=== PATIENT | male | born 1990 | race Caucasian/White ===

== ENCOUNTER 2022-10-05 14:45 | Emergency (ER) | payer OTHER, SELFPAY ==
[2022-10-05 14:59] VITALS: BP 129/86; PULSE 84; RESP 16; O2SAT 99; BMI 20.1
--- NOTE | 2022-10-05 15:13 | ED_ITS ---
HPI - Skin/Abscess/Foreign Bdy General Chief complaint: Skin/Abscess/Foreign Body Stated complaint: POSSIBLE CHEMICAL BURN ON REAR Time Seen by Provider: 10/05/22 15:01 Source: patient Mode of arrival: walk-in Limitations: no limitations History of Present Illness HPI narrative: 32-year-old male presents for rash. It's well-defined and on his right buttock. There is no pain but it's pruritic. No drainage. It is not elsewhere on his body. It is continuous. Related Data Previous Rx's Medication Instructions Recorded clotrimazole-betamethasone 1 1 applic topical BID 2 weeks #45 10/05/22 %-0.05 % topical cream grams fluconazole 100 mg tablet 100 mg PO DAILY #7 tabs 10/05/22 (Diflucan) Allergies Allergy/AdvReac Type Severity Reaction Status Date / Time Sulfa (Sulfonamide Allergy Severe Hives Verified 10/05/22 14:57 Antibiotics) mushrooms Allergy Severe Hives Uncoded 10/05/22 14:57 Review of Systems ROS Narrative A ten point review of systems is negative except as noted above. [facility] Medical History (Updated 10/05/22 @ 15:11 by Rafal Arauz MD) Social History Smoking status: Heavy tobacco smoker Exam Narrative Exam Narrative: Nurses note and vital signs reviewed and patient is not hypoxic. General: The patient appears well and in no apparent distress. Patient is resting comfortably on cart. Skin: Warm, dry, no pallor noted. There is it very well defined oval type rash on his right buttock involving approximately one quarter of the buttock. There is some central clearing. There is no raised area or drainage. Head: Normocephalic, atraumatic Eye: Normal conjunctiva, no drainage Ears, Nose, Mouth, and Throat: oral mucosa is moist. Nares patent. Cardiovascular: Regular Rate and Rhythm Respiratory: Patient is in no distress, no accessory muscle use, lungs are clear to auscultation, no wheezing, rales or rhonchi Back: non-tender GI: nontender Musculoskeletal: The patient has no evidence of calf tenderness, no pitting edema, symmetrical pulses noted bilaterally Neurological: A&O, normal speech Psychiatric: Cooperative Constitutional Vital Signs, click to edit/add: Last Vital Signs Pulse 84 10/05/22 14:59 Resp 16 10/05/22 14:59 BP 129/86 H 10/05/22 14:59 Pulse Ox 99 10/05/22 14:59 O2 Del Method Room Air 10/05/22 14:59 Course Vital Signs Vital signs: Vital Signs Pulse Rate 84 10/05/22 14:59 Respiratory Rate 16 10/05/22 14:59 Blood Pressure 129/86 H 10/05/22 14:59 Pulse Oximetry 99 10/05/22 14:59 Oxygen Delivery Method Room Air 10/05/22 14:59 Pulse Rate 84 10/05/22 14:59 Respiratory Rate 16 10/05/22 14:59 Blood Pressure 129/86 H 10/05/22 14:59 Pulse Oximetry 99 10/05/22 14:59 Oxygen Delivery Method Room Air 10/05/22 14:59 MDM - Skin/Abscess/Foreign Bdy MDM Narrative Medical decision making narrative: my clinical impression is that the patient has tinea corporis. He is prescribed Diflucan and Lotrisone. Treatment diagnosis and follow-up were discussed with th e patient. Differential Diagnosis Differential diagnosis: Likely abscess of skin or subcutaneous tissue, viral exanthem, dermatophytosis, urticaria, cellulitis and contact dermatitis Discharge Plan Discharge Chief Complaint: Skin/Abscess/Foreign Body Clinical Impression: Fungal dermatitis Patient Disposition: Home, Self-Care Time of Disposition Decision: 15:09 Condition: Good Mode of Transportation: Private Vehicle Prescriptions / Home Meds: New fluconazole [Diflucan] 100 mg tablet 100 mg PO DAILY Qty: 7 0RF clotrimazole-betamethasone 1-0.05 % cream 1 applic topical BID 14 Days Qty: 45 0RF Instructions: Tinea Corporis (ED) Stand Alone Forms: Portal Instructions Referrals: Natalee Thompson MD [Primary Care Provider] - 1 week
== END 2022-10-05 15:21 | disposition home or self-care (01) ==
PROVIDERS: Emergency Provider Emergency Medicine; PCP Specialist
DX: B35.4 Tinea corporis (principal); F17.210 Nicotine dependence, cigarettes, uncomplicated
CPT/HCPCS: 99283

== ENCOUNTER 2024-06-12 09:20 | Emergency (ER) | payer OTHER, SELFPAY ==
[2024-06-12 09:25] VITALS: BP 157/85; PULSE 104; TEMP 36.6; O2SAT 97; BMI 21.8
--- NOTE | 2024-06-12 10:30 | ED_ITS ---
HPI - Skin/Abscess/Foreign Bdy General Chief complaint: Skin/Abscess/Foreign Body Stated complaint: RASH ON BUTTOCK Time Seen by Provider: 06/12/24 09:31 Source: patient Mode of arrival: walk-in History of Present Illness HPI narrative: The patient presented to the ER with 2 rashes Diffuse rash in the posterior aspect of the buttock area has been there for a year initially he was treated with the antifungal cream that got better but came up again during the year and he did not address it The patient have another rash on the lateral aspect of his left thigh that showed up 2 days ago and is very itchy He denies any other complaints he denies any exposure to any new material 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 Related Data Previous Rx's ?Medication ?Instructions ?Recorded betamethasone dipropionate 0.05 % 1 applic topical BID rash #15 grams 06/12/24 topical cream clotrimazole 1 % topical cream 1 applic topical BID 4 weeks #45 06/12/24 grams Allergies Allergy/AdvReac Type Severity Reaction Status Date / Time Sulfa (Sulfonamide Allergy Severe Hives Verified 10/05/22 14:57 Antibiotics) mushrooms Allergy Severe Hives Uncoded 10/05/22 14:57 Review of Systems ROS Status of ROS 10 or more systems reviewed and unremark able except as noted in history and below [facility] Medical History (Updated 06/12/24 @ 09:40 by Katherine Garcia MD) History of depression ?Z86.59 - Personal history of other mental and behavioral disorders (ICD-10) Social History Smoking status: Heavy tobacco smoker Little interest or pleasure in doing things: not at all Feeling down, depressed, or hopeless: not at all Exam Narrative Exam Narrative: Nurses notes and vital signs reviewed and patient is not hypoxic. General: Well-appearing and in no apparent distress. Skin: On the posterior aspect of the sacral area the patient had 2 lesions that are measuring almost 3 cm oval and dry, macular and this rash could be tinea corporis On the lateral aspect of the thigh the patient have a 3 x 5 cm oval in shape rash that is continue to 2 small lesions that are papular and looks like it is contact dermatitis there is no vesicles there is no fluid there is no signs of infection Constitutional Vital Signs, click to edit/add: Last Vital Signs Temp 98 F 06/12/24 09:25 Pulse 104 H 06/12/24 09:25 Resp 20 06/12/24 09:25 BP 157/85 H 06/12/24 09:25 Pulse Ox 97 06/12/24 09:25 O2 Del Method Room Air 06/12/24 09:25 Course Vital Signs Vital signs: Vital Signs Temperature 98 F 06/12/24 09:25 Pulse Rate 104 H 06/12/24 09:25 Respiratory Rate 20 06/12/24 09:25 Blood Pressure 157/85 H 06/12/24 09:25 Pulse Oximetry 97 06/12/24 09:25 Oxygen Delivery Method Room Air 06/12/24 09:25 Temperature 98 F 06/12/24 09:25 Pulse Rate 104 H 06/12/24 09:25 Respiratory Rate 20 06/12/24 09:25 Blood Pressure 157/85 H 06/12/24 09:25 Pulse Oximetry 97 06/12/24 09:25 Oxygen Delivery Method Room Air 06/12/24 09:25 MDM - Skin/Abscess/Foreign Bdy MDM Narrative Medical decision making narrative: The patient's first rash that has been there for years mostly tinea corporis and it would be treated with clotrimazole twice a day for at least 4 weeks The patient also had a rash on the lateral aspect of the thigh and it will be treated with the local mid potency cream of steroid for contact dermatitis, Patient instructed to come back to the ER in case of any worsening of his symptoms The patient is to follow up with primary care physician in next 2-3 days or to return to the emergency department should any of the signs or symptoms worsen or new symptoms develop. The patient agrees with the following Diagnosis and Treatment plan and the patient will be discharged home. Discharge Plan Discharge Chief Complaint: Skin/Abscess/Foreign Body Clinical Impression: Contact dermatitis, Tinea corporis Patient Disposition: Home, Self-Care Time of Disposition Decision: 09:40 Condition: Good Prescriptions / Home Meds: New clotrimazole 1 % cream 1 applic topical BID 28 Days Qty: 45 0RF Rx Instructions: please apply to the posterior buttock rash betamethasone dipropionate 0.05 % cream 1 applic topical BID Qty: 15 0RF Rx Instructions: please apply for the left thigh rash for 1 week Print Language: [place] Instructions: Contact Dermatitis (DC), Tinea Corporis (ED) Referrals: Physician,Non-Staff, MD [Primary Care Provider] - 1 week Discharge Date/Time: 06/12/24 09:50
== END 2024-06-12 09:50 | disposition home or self-care (01) ==
PROVIDERS: Emergency Provider Emergency Medicine
DX: L25.9 Unspecified contact dermatitis, unspecified cause (principal); B35.4 Tinea corporis; F17.200 Nicotine dependence, unspecified, uncomplicated
CPT/HCPCS: 99283

== ENCOUNTER 2025-01-13 09:32 | Emergency (ER) | payer OTHER, SELFPAY ==
[2025-01-13] VITALS (9 sets, daily range): BP systolic 108–146; BP diastolic 70–90; PULSE 77–88; TEMP 36.9; O2SAT 98–100; BMI 21.3
--- OUTSIDE RECORDS SUMMARY | 2025-01-13 09:49 | XMS_ITS | Clinical Summary ---
Author Organization [facility] Address [address] [place] [address], [address] [place] [address] Care Team Providers Care Chairman And Ceo Name Role Phone Natalee Thompson MD Primary Care Provider Unavailab le Allergies Active Allergy Reactions Criticality Noted Date Comments Sulfa Antibiotics Hives 05/19/2016 Medications FLUoxetine (PROZAC) 20 MG capsule Take 40 mg by mouth every morning Active atenolol (TENORMIN) 25 MG tablet Take 25 mg by mouth every morning Active ibuprofen (ADVIL;MOTRIN) 600 MG tablet Take 1 tablet by mouth every 8 hours as needed for Pain 20 tablet 07/07/2016 Active Active Problems No known active problems Immunizations Immunization Administration Dates Next Due TDaP, ADACEL (age 10y-64y), BOOSTRIX (age 10y+), IM, 0.5mL 11/16/2016 Social History Tobacco Use Types Packs/Day Years Used Date Smoking Tobacco: Every Day Cigarettes Alcohol Use Standard Drinks/Week Comments No 0 (1 standard drink = 0.6 oz pur e alcohol) Sex and Gender Information Value Date Recorded Sex Assigned at Not on file Legal Sex Male 4:05 AM EDT Gender Identity Not on file Sexual Orientation Not on file Last Filed Vital Signs Vital Sign Reading Time Taken Comments Blood Pressure 120/70 11/16/2016 1:13 PM EDT Pulse 79 11/16/2016 1:13 PM EDT Temperature 36.7 C (98 F) 11/16/2016 1:13 PM EDT Respiratory Rate 18 07/07/2016 8:50 PM EDT Oxygen Saturation 98% 11/16/2016 1:13 PM EDT Inhaled Oxygen Concentration - - Weight 81.6 kg (180 lb) 11/16/2016 1:13 PM EDT Height 193 cm (6' 4 ) 11/16/2016 1:13 PM EDT Body Mass Index 21.91 11/16/2016 1:13 PM EDT Plan of Treatment Not on file Insurance [facility] [place] [facility] [place] Care Teams Chairman And Ceo Relationship Specialty Start Date End Date Natalee Thompson MD [address] [place] [address] PCP - General 05/19/16
--- OUTSIDE RECORDS SUMMARY | 2025-01-13 09:51 | XMS_ITS | CCD ---
Author Organization [facility] Care Team Providers Care Data Librarian Name Role Phone DANISH LOWERY Unavailable SHARMILA Bailon Unavailable Asha SAMPSON, DR JORGE Gonzalez Consulting Unavailable BEVERLEY, DR DANISH Stallings Primary Care Unavailable ADRIÁN, DR JORGE Gonzalez Admitting Unavailable ADRIÁN, DR JORGE Gonzalez Attending Unavailable ADRIÁN, DR JORGE Gonzalez Attending Unavailable ADRIÁN, DR JORGE Gonzalez Consulting Unavailable BEVERLEY, DR DANISH Stallings Primary Care Unavailable DR JORGE SAMPSON Admitting Unavailable AZAM FREIRE Admitting Unavailable GUERA VYAS Consulting Unavailable BEVERLEY, DR DANISH Stallings Primary Care Unavailable AZAM FREIRE Attending Unavailable Allergies Allergy Classification Reported Allergen(s) Allergy Type Date of Onset Reaction(s) Facility (1 source) Sulfonamides (Antibiotic) Drug allergy (disorder) 02-05-2015 [facility] Repository (1 source) Misc-Food; Translations: [Misc-Food] Food allergy (disorder) 02-05-2015 [facility] Repository Problems Active Problems Problem Classification Problem Date Documented Da te Episodic/Chronic Mood disorders (8 sources) Unspecified mood [affective] disorder; Translations: [Major depressive disorder, single episode, unspecified] Onset: 02-22-2021 Chronic Substance-related disorders (1 source) Nicotine dependence, cigarettes, uncomplicated; Translations: [NICOTINE DEPEND CIGARETTES UNCOMP] Onset: 01-22-2021 Chronic Substance-related disorders (2 sources) Cannabis use, unspecified, uncomplicated; Translations: [Cocaine use, unspecified, uncomplicated] Onset: 08-31-2021 Episodic Unclassified (1 source) CONTACT W/AND (SUSP) EXPOS COVID-19; Translations: [CONTACT W/AND (SUSP) EXPOS COVID-19] Onset: 08-31-2021 Past or Other Problems Problem Classification Problem Date Documented Da te Episodic/Chronic Disorders of teeth and jaw (4 sources) Other specified disorders of teeth and supporting structures; Translations: [Periapical abscess without sinus] Onset: 01-19-2021 Episodic Open wounds of extremities (1 source) Laceration without foreign body of left hand, initial encounter; Translations: [Laceration without foreign body of left hand, initial encounter] Onset: 11-16-2016 Episodic Results Test Name Value Interpretation Reference Range Facil ity ACETAMINOPHENon 08-30-2021 Acetaminophen [Mass/Vol] ug/mL Critically low 10.0-30.0 [facility] Comment on above: Performed By: #### E TH, CMP, SALYC, ACET #### [facility] [address] [place] [address] Dr. Ham Bai CBC AUTO DIFFon 08-30-2021 BASO # 0.1 103/ul Normal 0.0-0.1 [facility] Comment on above: Performed By: #### C BC #### [facility] [address] [place] [address] Dr. Ham Bai Basophils/100 WBC (Bld) 0.7 % Normal 0.2-2.0 [facility] Comment on above: Performed By: #### C BC #### [facility] [address] [place] [address] Dr. Ham Bai EO # 0.0 103/ul Normal 0.0-0.7 [facility] Comment on above: Performed By: #### C BC #### [facility] [address] [place] [address] Dr. Ham Bai Eosinophils/100 WBC (Bld) 0.4 % Critically low 0.9-7.0 [facility] Comment on above: Performed By: #### C BC #### [facility] [address] [place] [address] Dr. Ham Bai Erythrocyte distribution width (RBC) [Ratio] 13.8 % Normal 11.0-15.0 [facility] Comment on above: Performed By: #### C BC #### [facility] [address] [place] [address] Dr. Ham Bai Hematocrit (Bld) [Volume fraction] 46.4 % Normal 42.0-54.0 [facility] Comment on above: Performed By: #### C BC #### [facility] [address] [address] [address] Ham Bai Hemoglobin (Bld) [Mass/Vol] 15.7 g/dL Normal 14.0-18.0 [facility] Comment on above: Performed By: #### C BC #### [facility] [address] [address] [address] Ham Bai IG # 0.04 10e3/ul Critically high 0.00-0.03 [facility] Comment on above: Performed By: #### C BC #### [facility] [address] [place] [address] Dr. Ham Bai IG % 0.4 % Normal 0.0-0.5 [facility] Comment on above: Performed By: #### C BC #### [facility] [address] [place] [address] Dr. Ham Bai LYMPH # 2.3 103/ul Normal 1.2-3.8 [facility] Comment on above: Performed By: #### C BC #### [facility] [address] [place] [address] Dr. Ham Bai Lymphocytes/100 WBC (Bld) 20.0 % Critically low 20.5-60.0 [facility] Comment on above: Performed By: #### C BC #### [facility] [address] [place] [address] Dr. Ham Bai MANUAL DIFF REQ NO Normal [facility] Comment on above: Performed By: #### C BC #### [facility] [address] [place] [address] Dr. Ham Bai MCH (RBC) [Entitic mass] 30.1 pg Normal 25.9-34.0 [facility] Comment on above: Performed By: #### C BC #### [facility] [address] [place] [address] Dr. Ham Bai MCHC (RBC) [Mass/Vol] 33.8 g/dL Normal 29.9-35.2 [facility] Comment on above: Performed By: #### C BC #### [facility] [address] [address] [address] Ham Bai MCV (RBC) [Entitic vol] 89.1 fL Normal 80.0-94.0 [facility] Comment on above: Performed By: #### C BC #### [facility] [address] [address] [address] Ham Bai MONO # 1.0 103/ul Critically high 0.3-0.8 [facility] Comment on above: Performed By: #### C BC #### [facility] [address] [address] [address] Ham Bai Monocytes/100 WBC (Bld) 8.5 % Normal 1.7-12.0 [facility] Comment on above: Performed By: #### C BC #### [facility] [address] [place] [address] Dr. Ham Bai NEUT # 7.9 103/ul Critically high 1.4-6.5 [facility] Comment on above: Performed By: #### C BC #### [facility] [address] [place] [address] Dr. Ham Bai Neutrophils/100 WBC (Bld) 70.0 % Normal 43.0-75.0 [facility] Comment on above: Performed By: #### C BC #### [facility] [address] [place] [address] Dr. Ham Bai Platelet mean volume (Bld) [Entitic vol] 9.8 fL Normal 9.5-13.5 [facility] Comment on above: Performed By: #### C BC #### [facility] [address] [place] [address] Dr. Ham Bai PLT 328 103/ul Normal 150-450 [facility] Comment on above: Performed By: #### C BC #### [facility] [address] [place] [address] Dr. Ham Bai RBC 5.21 106/ul Normal 4.70-6.10 [facility] Comment on above: Performed By: #### C BC #### [facility] [address] [place] [address] Dr. Ham Bai WBC 11.3 103/ul Critically high 4.0-11.0 [facility] Comment on above: Performed By: #### C BC #### [facility] [address] [place] [address] Dr. Ham Bai Covid-19 PCR ([facility])on SARS-CoV-2 (COVID-19) RNA MARAL+probe Ql (Unsp spec) Not detected Normal NOT DETECTED [facility] Comment on above: Result Comment: When diagnostic testing is negative, the possibility of a false negative should be considered in the context of a patient's recent exposures and the presence of clinical signs and symptoms consistent with SARS-CoV-2. This test is not yet approved or cleared by the [place] FDA. When there are no FDA-approved or cleared tests available, and other criteria are met, FDA can make tests available under an emergency access mechanism called an Emergency Use Authorization (EUA). The EUA for this test is supported by the [place] of Health and Human Service's declaration that circumstances exist to justify the emergency use of in vitro diagnostics for the detection and/or diagnosis of the virus that causes COVID-19. This EUA will remain in effect for the duration of the COVID-19 declaration justifying emergency of IVDs, unless it is terminated or revoked by the FDA (after which the test may no longer be used). Performed By: #### D RUGRPD #### [facility] [address] [place] [address] Dr. Ham Bai DRUG SCREEN RAPID (URINE)on 08-30-2021 AMP Negative Normal NEGATIVE [facility] Comment on above: Performed By: #### D RUGRPD #### [facility] [address] [place] [address] Dr. Ham Bai BAR Negative Normal NEGATIVE [facility] Comment on above: Performed By: #### D RUGRPD #### [facility] [address] [place] [address] Dr. Ham Bai [facility] Negative Normal NEGATIVE [facility] Comment on above: Performed By: #### D RUGRPD #### [facility] [address] [place] [address] Dr. Ham Bai BZO Negative Normal NEGATIVE [facility] Comment on above: Performed By: #### D RUGRPD #### [facility] [address] [place] [address] Dr. Ham Bai MOISES Positive Abnormal NEGATIVE [facility] Comment on above: Performed By: #### D RUGRPD #### [facility] [address] [place] [address] Dr. Ham Bai CUT-OFFS SEE BELOW Normal [facility] Comment on above: Result Comment: AMP (Amphetamine): 500ng/mL, BAR (Barbituates): 200 ng/mL, BZO (Benzodiazepines): 150 ng/mL, BUP (Buprenorphine): 10 ng/mL, MOISES (Cocaine): 150 ng/mL, mAMP (Methamphetamine): 500 ng/mL, MTD (Methadone): 200 ng/mL, OPI (Opiates): 100 ng/mL, OXY (Oxycodone): 100 ng/mL, PCP (Phencyclidine): 25 ng/mL, PPX (Propoxyphene): 300 ng/mL, THC (Cannabinoids): 50 ng/mL, TCA (Trycyclic Antidepressants): 300 ng/mL Performed By: #### D RUGRPD #### [facility] [address] [place] [address] Dr. Ham Bai DRUG CUT HEADER DRUG CLASS TEST SYSTEM CUT-OFF CONCENTRATIONS ARE FOLLOWS: Normal [facility] Comment on above: Performed By: #### D RUGRPD #### [facility] [address] [place] [address] Dr. Ham Bai mAMP Negative Normal NEGATIVE [facility] Comment on above: Performed By: #### D RUGRPD #### [facility] [address] [place] [address] Dr. Ham Bai MTD Negative Normal NEGATIVE [facility] Comment on above: Performed By: #### D RUGRPD #### [facility] [address] [place] [address] Dr. Ham Bai OPI Negative Normal NEGATIVE [facility] Comment on above: Performed By: #### D RUGRPD #### [facility] [address] [address] [address] Ham Bai OXY Negative Normal NEGATIVE [facility] Comment on above: Performed By: #### D RUGRPD #### [facility] [address] [place] [address] Dr. Ham Bai PCP Negative Normal NEGATIVE [facility] Comment on above: Performed By: #### D RUGRPD #### [facility] [address] [place] [address] Dr. Ham Bai PPX Negative Normal NEGATIVE [facility] Comment on above: Performed By: #### D RUGRPD #### [facility] [address] [place] [address] Dr. Ham Bai TCA Negative Normal NEGATIVE [facility] Comment on above: Performed By: #### D RUGRPD #### [facility] [address] [place] [address] Dr. Ham Bai THC Positive Abnormal NEGATIVE [facility] Comment on above: Performed By: #### D RUGRPD #### [facility] [address] [place] [address] Dr. Ham Bai ETHANOL (BLD ALC)on 08-31-19 22 ALC NOTE NOTE: 80 mg/dl is the legal limit for a blood alcohol level Normal [facility] Comment on above: Performed By: #### E TH, CMP, SALYC, ACET #### [facility] [address] [place] [address] Dr. Ham Bai Ethanol [Mass/Vol] mg/dL Normal [facility] Comment on above: Performed By: #### E TH, CMP, SALYC, ACET #### [facility] [address] [place] [address] Dr. Ham Bai PROF 14(COMP METB)on 022 Albumin [Mass/Vol] 4.3 g/dL Normal 3.4-5.0 [facility] Comment on above: Performed By: #### E TH, CMP, SALYC, ACET #### [facility] [address] [place] [address] Dr. Ham Bai Albumin/Globulin [Mass ratio] 1.2 {ratio} Normal [facility] Comment on above: Performed By: #### E TH, CMP, SALYC, ACET #### [facility] [address] [place] [address] Dr. Ham Bai ALP [Catalytic activity/Vol] 81 U/L Normal 46-116 [facility] Comment on above: Performed By: #### E TH, CMP, SALYC, ACET #### [facility] [address] [place] [address] Dr. Ham Bai ALT [Catalytic activity/Vol] 21 U/L Normal 16-63 [facility] Comment on above: Performed By: #### E TH, CMP, SALYC, ACET #### [facility] [address] [place] [address] Dr. Ham Bai Anion gap [Moles/Vol] 9.8 mmol/L Normal [facility] Comment on above: Performed By: #### E TH, CMP, SALYC, ACET #### [facility] [address] [place] [address] Dr. Ham Bai AST [Catalytic activity/Vol] 21 U/L Normal 15-37 [facility] Comment on above: Performed By: #### E TH, CMP, SALYC, ACET #### [facility] [address] [place] [address] Dr. Ham Bai Bilirubin [Mass/Vol] 1.0 mg/dL Normal 0.2-1.0 [facility] Comment on above: Performed By: #### E TH, CMP, SALYC, ACET #### [facility] [address] [place] [address] Dr. Ham Bai Calcium [Mass/Vol] 9.2 mg/dL Normal 8.5-10.1 [facility] Comment on above: Performed By: #### E TH, CMP, SALYC, ACET #### [facility] [address] [place] [address] Dr. Ham Bai Chloride [Moles/Vol] 104 mmol/L Normal 98-107 [facility] Comment on above: Performed By: #### E TH, CMP, SALYC, ACET #### [facility] [address] [address] [address] Ham Bai CO2 [Moles/Vol] 30.0 mmol/L Normal 21.0-32.0 [facility] Comment on above: Performed By: #### E TH, CMP, SALYC, ACET #### [facility] [address] [address] [address] Ham Bai Creatinine [Mass/Vol] 0.77 mg/dL Normal 0.70-1.30 [facility] Comment on above: Performed By: #### E TH, CMP, SALYC, ACET #### [facility] [address] [address] [address] Ham Bai EGFR-AF ESTONIAN >60 Normal >=60 [facility] Comment on above: Performed By: #### E TH, CMP, SALYC, ACET #### [facility] [address] [place] [address] Dr. Ham aBi EGFR-NON AF ESTONIAN >60 Normal >=60 [facility] Comment on above: Performed By: #### E TH, CMP, SALYC, ACET #### [facility] [address] [address] [address] Ham Bai Globulin (S) [Mass/Vol] 3.7 g/dL Normal [facility] Comment on above: Performed By: #### E TH, CMP, SALYC, ACET #### [facility] [address] [address] [address] Ham Bai Glucose [Mass/Vol] 92 mg/dL Normal 74-106 [facility] Comment on above: Performed By: #### E TH, CMP, SALYC, ACET #### [facility] [address] [address] [address] Ham Bai Potassium [Moles/Vol] 3.8 mmol/L Normal 3.5-5.1 [facility] Comment on above: Performed By: #### E TH, CMP, SALYC, ACET #### [facility] [address] [address] [address] Ham Bai Protein [Mass/Vol] 8.0 g/dL Normal 6.4-8.2 [facility] Comment on above: Performed By: #### E TH, CMP, SALYC, ACET #### [facility] [address] [place] [address] Dr. Ham Bai Sodium [Moles/Vol] 140 mmol/L Normal 136-145 [facility] Comment on above: Performed By: #### E TH, CMP, SALYC, ACET #### [facility] [address] [place] [address] Dr. Ham Bai Urea nitrogen [Mass/Vol] 6.0 mg/dL Critically low 7.0-18.0 [facility] Comment on above: Performed By: #### E TH, CMP, SALYC, ACET #### [facility] [address] [place] [address] Dr. Ham Bai Urea nitrogen/Creatinine [Mass ratio] 7.8 mg/mg Normal [facility] Comment on above: Performed By: #### E TH, CMP, SALYC, ACET #### [facility] [address] [place] [address] Dr. Ham Bai SALICYLATEon 08-30-2021 SALICYLATE 4.1 mg/dL Normal <=19.9 [facility] Comment on above: Performed By: #### E TH, CMP, SALYC, ACET #### [facility] [address] [place] [address] Dr. Ham Bai ACETAMINOPHENon 02-23-2021 Acetaminophen [Mass/Vol] ug/mL Critically low 10.1-30.0 [facility] Comment on above: Performed By: #### A CET #### [facility] [address] [place] [address] Dr. Ham Bai CBC AUTO DIFFon 02-23-2021 BASO # 0.1 103/ul Normal 0.0-0.1 [facility] Comment on above: Performed By: #### D RUGRPD #### [facility] [address] [place] [address] Dr. Ham Bai Basophils/100 WBC (Bld) 0.5 % Normal 0.2-2.0 [facility] Comment on above: Performed By: #### D RUGRPD #### [facility] [address] [place] [address] Dr. Ham Bai EO # 0.0 103/ul Normal 0.0-0.7 [facility] Comment on above: Performed By: #### D RUGRPD #### [facility] [address] [place] [address] Dr. Ham Bai Eosinophils/100 WBC (Bld) 0.0 % Critically low 0.9-7.0 [facility] Comment on above: Performed By: #### D RUGRPD #### [facility] [address] [place] [address] Dr. Ham Bai Erythrocyte distribution width (RBC) [Ratio] 13.2 % Normal 11.0-15.0 [facility] Comment on above: Performed By: #### D RUGRPD #### [facility] [address] [place] [address] Dr. Ham Bai Hematocrit (Bld) [Volume fraction] 43.8 % Normal 42.0-54.0 [facility] Comment on above: Performed By: #### D RUGRPD #### [facility] [address] [place] [address] Dr. Ham Bai Hemoglobin (Bld) [Mass/Vol] 14.7 g/dL Normal 14.0-18.0 [facility] Comment on above: Performed By: #### D RUGRPD #### [facility] [address] [place] [address] Dr. Ham Bai IG # 0.04 10e3/ul Critically high 0.00-0.03 [facility] Comment on above: Performed By: #### D RUGRPD #### [facility] [address] [place] [address] Dr. Ham Bai IG % 0.3 % Normal 0.0-0.5 [facility] Comment on above: Performed By: #### D RUGRPD #### [facility] [address] [place] [address] Dr. Ham Bai LYMPH # 2.0 103/ul Normal 1.2-3.8 [facility] Comment on above: Performed By: #### D RUGRPD #### [facility] [address] [place] [address] Dr. Ham Bai Lymphocytes/100 WBC (Bld) 14.8 % Critically low 20.5-60.0 [facility] Comment on above: Performed By: #### D RUGRPD #### [facility] [address] [place] [address] Dr. Ham Bai MANUAL DIFF REQ NO Normal [facility] Comment on above: Performed By: #### D RUGRPD #### [facility] [address] [place] [address] Dr. Ham Bai MCH (RBC) [Entitic mass] 29.9 pg Normal 25.9-34.0 [facility] Comment on above: Performed By: #### D RUGRPD #### [facility] [address] [place] [address] Dr. Ham Bai MCHC (RBC) [Mass/Vol] 33.6 g/dL Normal 29.9-35.2 [facility] Comment on above: Performed By: #### D RUGRPD #### [facility] [address] [place] [address] Dr. Ham Bai MCV (RBC) [Entitic vol] 89.0 fL Normal 80.0-94.0 [facility] Comment on above: Performed By: #### D RUGRPD #### [facility] [address] [place] [address] Dr. Ham Bai MONO # 0.9 103/ul Critically high 0.3-0.8 [facility] Comment on above: Performed By: #### D RUGRPD #### [facility] [address] [place] [address] Dr. Ham Bai Monocytes/100 WBC (Bld) 7.1 % Normal 1.7-12.0 [facility] Comment on above: Performed By: #### D RUGRPD #### [facility] [address] [place] [address] Dr. Ham Bai NEUT # 10.2 103/ul Critically high 1.4-6.5 [facility] Comment on above: Performed By: #### D RUGRPD #### [facility] [address] [place] [address] Dr. Ham Bai Neutrophils/100 WBC (Bld) 77.3 % Critically high 43.0-75.0 [facility] Comment on above: Performed By: #### D RUGRPD #### [facility] [address] [place] [address] Dr. Ham Bai Platelet mean volume (Bld) [Entitic vol] 10.0 fL Normal 9.5-13.5 [facility] Comment on above: Performed By: #### D RUGRPD #### [facility] [address] [place] [address] Dr. Ham Bai PLT 262 103/ul Normal 150-450 [facility] Comment on above: Performed By: #### D RUGRPD #### [facility] [address] [place] [address] Dr. Ham Bai RBC 4.92 106/ul Normal 4.70-6.10 [facility] Comment on above: Performed By: #### D RUGRPD #### [facility] [address] [place] [address] Dr. Ham Bai WBC 13.2 103/ul Critically high 4.0-11.0 [facility] Comment on above: Performed By: #### D RUGRPD #### [facility] [address] [place] [address] Dr. Ham Bai DRUG SCREEN RAPID (URINE)on 02-23-2021 AMP Negative Normal NEGATIVE [facility] Comment on above: Performed By: #### D RUGRPD #### [facility] [address] [place] [address] Dr. Ham Bai BAR Negative Normal NEGATIVE [facility] Comment on above: Performed By: #### D RUGRPD #### [facility] [address] [place] [address] Dr. Ham Bai BUP Negative Normal NEGATIVE [facility] Comment on above: Performed By: #### D RUGRPD #### [facility] [address] [place] [address] Dr. Ham Bai BZO Negative Normal NEGATIVE [facility] Comment on above: Performed By: #### D RUGRPD #### [facility] [address] [place] [address] Dr. Ham Bai MOISES Negative Normal NEGATIVE [facility] Comment on above: Performed By: #### D RUGRPD #### [facility] [address] [place] [address] Dr. Ham Bai CUT-OFFS SEE BELOW Normal [facility] Comment on above: Result Comment: AMP (Amphetamine): 500ng/mL, BAR (Barbituates): 200 ng/mL, BZO (Benzodiazepines): 150 ng/mL, BUP (Buprenorphine): 10 ng/mL, MOISES (Cocaine): 150 ng/mL, mAMP (Methamphetamine): 500 ng/mL, MTD (Methadone): 200 ng/mL, OPI (Opiates): 100 ng/mL, OXY (Oxycodone): 100 ng/mL, PCP (Phencyclidine): 25 ng/mL, PPX (Propoxyphene): 300 ng/mL, THC (Cannabinoids): 50 ng/mL, TCA (Trycyclic Antidepressants): 300 ng/mL Performed By: #### D RUGRPD #### [facility] [address] [place] [address] Dr. Ham Bai DRUG CUT HEADER DRUG CLASS TEST SYSTEM CUT-OFF CONCENTRATIONS ARE FOLLOWS: Normal [facility] Comment on above: Performed By: #### D RUGRPD #### [facility] [address] [place] [address] Dr. Ham Bai mAMP Negative Normal NEGATIVE [facility] Comment on above: Performed By: #### D RUGRPD #### [facility] [address] [place] [address] Dr. Ham Bai MTD Negative Normal NEGATIVE [facility] Comment on above: Performed By: #### D RUGRPD #### [facility] [address] [place] [address] Dr. Ham Bai OPI Negative Normal NEGATIVE [facility] Comment on above: Performed By: #### D RUGRPD #### [facility] [address] [place] [address] Dr. Ham Bai OXY Negative Normal NEGATIVE [facility] Comment on above: Performed By: #### D RUGRPD #### [facility] [address] [place] [address] Dr. Ham Bai PCP Negative Normal NEGATIVE [facility] Comment on above: Performed By: #### D RUGRPD #### [facility] [address] [place] [address] Dr. Ham Bai PPX Negative Normal NEGATIVE [facility] Comment on above: Performed By: #### D RUGRPD #### [facility] [address] [place] [address] Dr. Ham Bai TCA Negative Normal NEGATIVE [facility] Comment on above: Performed By: #### D RUGRPD #### [facility] [address] [place] [address] Dr. Ham Bai THC Positive Abnormal NEGATIVE [facility] Comment on above: Performed By: #### D RUGRPD #### [facility] [address] [place] [address] Dr. Ham Bai ETHANOL (BLD ALC)on 02-24-20 21 ALC NOTE NOTE: 80 mg/dl is the legal limit for a blood alcohol level Normal [facility] Comment on above: Performed By: #### E TH #### [facility] [address] [place] [address] Dr. Ham Bai Ethanol [Mass/Vol] mg/dL Normal [facility] Comment on above: Performed By: #### E TH #### [facility] [address] [place] [address] Dr. Ham Bai PROF 14(COMP METB)on 021 Albumin [Mass/Vol] 4.0 g/dL Normal 3.5-5.0 [facility] Comment on above: Performed By: #### D RUGRPD #### [facility] [address] [place] [address] Dr. Ham Bai Albumin/Globulin [Mass ratio] 1.3 {ratio} Normal [facility] Comment on above: Performed By: #### D RUGRPD #### [facility] [address] [place] [address] Dr. Ham Bai ALP [Catalytic activity/Vol] 66 U/L Normal 38-126 [facility] Comment on above: Performed By: #### D RUGRPD #### [facility] [address] [address] [address] Ham Bai ALT [Catalytic activity/Vol] 23 U/L Normal 21-72 [facility] Comment on above: Performed By: #### D RUGRPD #### [facility] [address] [place] [address] Dr. Ham Bai Anion gap [Moles/Vol] 11.4 mmol/L Normal [facility] Comment on above: Performed By: #### D RUGRPD #### [facility] [address] [place] [address] Dr. Ham Bai AST [Catalytic activity/Vol] 16 U/L Critically low 17-59 [facility] Comment on above: Performed By: #### D RUGRPD #### [facility] [address] [place] [address] Dr. Ham Bai Bilirubin [Mass/Vol] 0.6 mg/dL Normal 0.2-1.3 [facility] Comment on above: Performed By: #### D RUGRPD #### [facility] [address] [place] [address] Dr. Ham Bai Calcium [Mass/Vol] 9.0 mg/dL Normal 8.4-10.2 [facility] Comment on above: Performed By: #### D RUGRPD #### [facility] [address] [place] [address] Dr. Ham Bai Chloride [Moles/Vol] 102 mmol/L Normal 98-107 [facility] Comment on above: Performed By: #### D RUGRPD #### [facility] [address] [place] [address] Dr. Ham Bai CO2 [Moles/Vol] 27.6 mmol/L Normal 22.0-30.0 [facility] Comment on above: Performed By: #### D RUGRPD #### [facility] [address] [address] [address] Ham Bai Creatinine [Mass/Vol] 0.92 mg/dL Normal 0.66-1.25 [facility] Comment on above: Performed By: #### D RUGRPD #### [facility] [address] [address] [address] Ham Bai EGFR-AF ESTONIAN >60 Normal >=60 [facility] Comment on above: Performed By: #### D RUGRPD #### [facility] [address] [place] [address] Dr. Ham Bai EGFR-NON AF ESTONIAN >60 Normal >=60 [facility] Comment on above: Performed By: #### D RUGRPD #### [facility] [address] [place] [address] Dr. Ham Bai Globulin (S) [Mass/Vol] 3.1 g/dL Normal [facility] Comment on above: Performed By: #### D RUGRPD #### [facility] [address] [address] [address] Ham Bai Glucose [Mass/Vol] 108 mg/dL Critically high 74-106 [facility] Comment on above: Performed By: #### D RUGRPD #### [facility] [address] [address] [address] Ham Bai Potassium [Moles/Vol] 4.0 mmol/L Normal 3.4-5.0 [facility] Comment on above: Performed By: #### D RUGRPD #### [facility] [address] [address] [address] Ham Bai Protein [Mass/Vol] 7.1 g/dL Normal 6.1-8.2 [facility] Comment on above: Performed By: #### D RUGRPD #### [facility] [address] [address] [address] Ham Bai Sodium [Moles/Vol] 137 mmol/L Normal 137-145 [facility] Comment on above: Performed By: #### D RUGRPD #### [facility] [address] [address] [address] Ham Bai Urea nitrogen [Mass/Vol] 10.0 mg/dL Normal 9.0-20.0 [facility] Comment on above: Performed By: #### D RUGRPD #### [facility] [address] [address] [address] Ham Bai Urea nitrogen/Creatinine [Mass ratio] 10.9 mg/mg Normal [facility] Comment on above: Performed By: #### D RUGRPD #### [facility] [address] [place] [address] Dr. Ham Bai SALICYLATEon 02-23-2021 SALICYLATE 5.1 mg/dL Normal <=20.0 [facility] Comment on above: Performed By: #### S ALYC #### [facility] [address] [place] [address] Dr. Ham Bai XR FINGER LEFT STANDARDon XR FINGER LEFT STANDARD EXAMINATION: XR FINGER LEFT STANDARD 3 VIEWSCLINICAL HISTORY: Middle finger laceration.COMPARISO NS: None available.FINDINGS: There is laceration of the tip of the left middle finger. No acute fracture or radiodense foreign body is identified. Incidentally noted is an old ununited chip fracture of the lateral base of the fifth proximal phalanx. There is an old tiny ununited avulsion fracture, soft tissue calcification, or foreign body in the soft tissues volar lateral to the neck of fourth distal phalanx.IMPRESSION: LACERATION OF THE TIP OF THE MIDDLE FINGER. NEGATIVE FOR ACUTE FRACTURE.Interpreted by:OBINNA Gipsonigned by:Bartolo Youngblood MD11/16/16Final result Normal [facility] Encounters Encounter Date Encounter Type Care Provider Facility Start: 08-30-2021 End: 08-30-2021 ambulatory AZAM FREIRE Facility:[facility] Start: 02-22-2021 End: 02-23-[address] JORGE SAMPSON Facility:[facility] Start: 01-19-2021 End: 01-19-[address] JORGE SAMPSON Facility:[facility] Start: 11-16-2016 End: 11-16-2016 Emergency department patient visit DANISH LOWERY [facility] Procedures Date Procedure Procedure Detail Performing Clinician Start: 11-16-2016 LACERATION REPAIR DANISH HINOJOSA Start: 11-16-2016 NURSING COMMUNICATION Arthur LOWERY Start: 11-16-2016 Radex fingr minimum 2 views DANISH LOWERY Payers Date Payer Category Payer Private Health Insurance [id number] 1990 Unknown [id number] [id number] [id number] 1990 Unknown [id number] [id number] [id number] 1990 Unknown [id number] [id number] [id number] 1960 Unknown [id number] Summary Purpose Family History No Family History Records FoundNo Family History Records Found Advance Directives No Advanced Directives Records FoundNo Advanced Directives Records Found Additional Source Comments (unrecognized sect ion and content) No Status Records FoundNo Status Records Found INFORMATION SOURCE (unrecogn ized section and content) DATE CREATED AUTHOR 09/24/2017 [facility] DATE CREATED AUTHOR AUTHOR'S BRINDA TREVINO 08/31/2021 The [facility] FOR RECORDS PERTAINING TO PATIENTS WHO ARE OR HAVE BEEN ENROLLED IN A CHEMICAL DEPENDENCY/SUBSTANCEABUSE PROGRAM, SOME INFORMATION MAY BE OMITTED. This clinical summary was aggregated from multiple sources. Caution should be exercised in using it in the provision of clinical care. This summary normalizes information from multiple sources, and as a consequence, information in this document may materially change the coding, format and clinical context of patient data. In addition, data may be omitted in some cases. CLINICAL DECISIONS SHOULD BE BASED ON THE PRIMARY CLINICAL RECORDS. [employer] provides no warranty or guarantee of the accuracy or completeness of information in this document.
--- NOTE | 2025-01-13 09:52 | CT_ITS ---
The [address] [address] Patient Name: ALENA KLEIN MRN: [id number] date: 1990 Sex: M Assigned Patient Location: ER Current Patient Location: ER Accession/Order Number: [id number] Exam Date: 01/13/2025 10:14 Report Date: 01/13/2025 10:32 At the request of: GARDENIA WORKMAN MD Procedure: CT head/brain wo con CT BRAIN WITHOUT CONTRAST: CLINICAL HISTORY: trauma, fall COMPARISON: None TECHNIQUE: Contiguous axial unenhanced images were obtained through the brain. This CT exam was performed using one or more following dose reduction techniques: Automated exposure control, adjustment of the mA and/or kV according to patient size, or use of iterative reconstruction technique. FINDINGS: There is no evidence of midline shift, intra or extra-axial fluid collection, hemorrhage or CT evidence of acute large vascular distribution stroke. Visualized intraorbital contents appear unremarkable. Visualized paranasal sinuses are clear. The surrounding soft tissues are normal. CT/CT head/brain wo con IMPRESSION: NO ACUTE INTRACRANIAL ABNORMALITY. Impression dictated by: Bahman Lindsey M.D. 01/13/2025 10:32 AM Dictation Location: [place] [address] Electronically authenticated by: [id number] Y Date: 01/13/2025 10:32
--- NOTE | 2025-01-13 09:52 | ECG_ITS ---
The [facility] Test Date: 2025-01-13 Pat Name: ALENA KLEIN Department: Room: - Gender: Male Records Management Specialist: : 1990 Requested By: Order Number: [id number] Reading MD: KRYS ROSADO M.D. Measurements Intervals [place] Rate: 79 P: 75 [place]: 184 QRS: 77 QRSD: 94 T: 64 QT: 362 QTc: 397 Interpretive Statements 1100 Sinus rhythm 2420 RSR (QR) in lead V1/V2, consistent with right ventricular conduction delay 9130 borderline ECG Compared to ECG 08/30/2021 16:04:14 No significant changes Electronically Signed On 01-13-2025 19:54:48 EDT by KRYS ROSADO M.D.
--- NOTE | 2025-01-13 09:52 | CT_ITS ---
The [address] [address] Patient Name: ALENA KLEIN MRN: [id number] date: 1990 Sex: M Assigned Patient Location: ER Current Patient Location: ER Accession/Order Number: [id number] Exam Date: 01/13/2025 10:14 Report Date: 01/13/2025 10:34 At the request of: GARDENIA WORKMAN MD Procedure: CT cervical spine wo con CT CERVICAL SPINE WITHOUT CONTRAST WITH 3D RECONSTRUCTIONS: CLINICAL HISTORY: fall COMPARISON: None TECHNIQUE: Spiral axial unenhanced images were obtained through the cervical spine. Sagittal, coronal and 3D volume-rendered reconstructions were also reviewed. This CT exam was performed using one or more following dose reduction techniques: Automated exposure control, adjustment of the mA and/or kV according to patient size, or use of iterative reconstruction technique. FINDINGS: No evidence of acute fracture or malalignment. Mild multilevel degenerative changes notably C4-C6 with disc osteophyte complex formation and uncovertebral spurring. Mild emphysematous scarring at C3-C4. Anterior marginal disc osteophyte complex at C7-T1. Prevertebral soft tissues are unremarkable. Lung apices demonstrate minor emphysematous changes and scarring. CT/CT cervical spine wo con IMPRESSION: NO CERVICAL SPINE FRACTURE MULTILEVEL DEGENERATIVE CHANGES. Impression dictated by: Bahman Lindsey M.D. 01/13/2025 10:34 AM Dictation Location: [place] [address] Electronically authenticated by: [id number] Y Date: 01/13/2025 10:34
--- NOTE | 2025-01-13 09:53 | XR_ITS ---
The [address] [address] Patient Name: ALENA KLEIN MRN: [id number] date: 1990 Sex: M Assigned Patient Location: ER Current Patient Location: ER Accession/Order Number: [id number] Exam Date: 01/13/2025 10:23 Report Date: 01/13/2025 10:34 At the request of: GARDENIA WORKMAN MD Procedure: XR hip LT 2V w/ pelvis Left hip 2 views of one view pelvis. Reason for exam: Fall last night. Left lateral hip pain. COMPARISON: None FINDINGS: Mild degenerative changes involving the hips without acute bony process. XR/XR hip LT 2V w/ pelvis IMPRESSION: Mild degenerative changes of the hips without acute bony process. Impression dictated by: Monty Castro Jr., DShaquilleOShaquille 01/13/2025 10:34 AM Dictation Location: [place] [address] Electronically authenticated by: [id number] Y Date: 01/13/2025 10:34
--- NOTE | 2025-01-13 09:53 | PC.NURSE ---
Denies any nausea, c/o lingering headache-- scratch/abrasion to right forehead. but does not feel hungover. 10/07, also has right hip pain, no bruising or deformity. PERRL- 3mm bilat, hand graps and foot flexion/extension- strong and equal bilat. Smile symmetrical
[2025-01-13] MEDS: 0.9 % SODIUM CHLORIDE 1,000 ML 1000 ML IV (10:10)
[2025-01-13 10:15] LABS: Hematocrit 52.9 % (42.0-54.0); Hemoglobin 18.3 g/dL (14.0-18.0); Immature Granulocytes Abs Auto 0.04 10^3/uL (0.00-0.03); Immature Granulocytes Pct Auto 0.3 % (0.0-0.5); Lymphocytes Absolute Auto 2.5 10^3/uL (1.2-3.8); Mean Corpuscular HGB Conc 34.6 g/dL (29.9-35.2); Mean Corpuscular Hemoglobin 31.6 pg (25.9-34.0); Mean Corpuscular Volume 91.4 fL (80.0-94.0); Platelet Count 314 10^3/uL (150-450); Red Blood Count 5.79 10^6/uL (4.70-6.10); White Blood Count 12.7 10^3/uL (4.0-11.0)
[2025-01-13 10:39] LABS: Alanine Aminotransferase 26 U/L (16-63); Albumin Globulin Ratio 1.1; Albumin Level 4.3 g/dL (3.4-5.0); Alkaline Phosphatase 76 U/L (46-116); Anion Gap 13.8; Aspartate Amino Transferase 20 U/L (15-37); Blood Urea Nitrogen 9.0 mg/dL (7.0-18.0); Calcium 9.0 mg/dL (8.5-10.1); Carbon Dioxide 28.2 mmol/L (21.0-32.0); Chloride 101 mmol/L (98-107); Estimated GFR (African America >60 (>=60 mL/min/1.73m^2); Estimated GFR (Non-African Ame >60 (>=60 mL/min/1.73m^2); Globulin 4.0 g/dL; Glucose 90 mg/dL (74-106); Potassium 4.0 mmol/L (3.5-5.1); Sodium 139 mmol/L (136-145); Total Protein 8.3 g/dL (6.4-8.2)
--- NOTE | 2025-01-13 11:14 | ED.HEATRA1 ---
HPI HPI - Head Injury General Chief complaint: Head Injury Stated complaint: HEAD INJURY - FALL LAST NIGHT Time Seen by Provider: 01/13/25 09:52 Mode of arrival: walk-in History of Present Illness HPI Narrative: 34-year-old male who presented to the ER after he had a fall last night. He was drinking as his usual habits and apparently he tripped and fell hitting the front of his head mostly to the right side. At that time he had his girlfriend at his bedside and she helped him to stand up again he had no loss of consciousness no nausea no vomiting no other concerns. The patient did go to sleep to wake up this morning and go to work. The patient mentioned that he does not feel normal as he feels sometimes that he is dizzy and sometimes he feels that it is taking him time to do the tasks at work more than usual The patient denies any nausea vomiting he does have some headache mostly to the right side frontal No blurry vision no double vision he also is complaining of left hip pain from the fall Related Data Previous Rx's ?Medication ?Instructions ?Recorded betamethasone dipropionate 0.05 % 1 applic topical BID rash #15 grams 06/12/24 topical cream clotrimazole 1 % topical cream 1 applic topical BID 4 weeks #45 06/12/24 grams Allergies Allergy/AdvReac Type Severity Reaction Status Date / Time mushroom Allergy Severe Rash Verified 01/13/25 09:44 Sulfa (Sulfonamide Allergy Severe Hives Verified 01/13/25 09:42 Antibiotics) Opioid HPI Opioid Management Most Recent Pain and Opioid Data: Last Pain Scale 7 Today, 11:20 Last MAY Pain Assessment Today, 11:20 Review of Systems ROS Status of ROS 10 or more systems reviewed and unremarkable except as noted in history and below [facility] Medical History (Updated 01/13/25 @ 11:16 by Katherine Garcia MD) History of depression ?Z86.59 - Personal history of other mental and behavioral disorders (ICD-10) Social History Smoking status: Heavy tobacco smoker Little interest or pleasure in doing things: several days Feeling down, depressed, or hopeless: not at all Exam Narrative Exam Narrative: Nurses notes and vital signs reviewed and patient is not hypoxic. General: Well-appearing and in no apparent distress. Skin: Warm, dry, no pallor noted. No rash. Head: Normocephalic, right frontal abrasion and small contusion measuring almost 1 x 2 cm and no open wounds. Neck: Supple, non-tender. Cardiovascular: Regular Rate and Rhythm without murmur, gallop or rub. Respiratory: No accessory muscle use or respiratory distress. Lungs are clear to auscultation, no wheezing, rales or rhonchi Chest Wall: no tenderness Back: No midline thoracic or lumbar vertebral tenderness. No CVA tenderness Musculoskeletal: normal ROM, no calf or popliteal tenderness, no lower extremity edema/swelling GI: Abdomen is soft, non-distended. Normal bowel sounds. No masses appreciated. No tenderness to palpation. No rebound, guarding, or rigidity noted. Neurological: A&O x4. No cranial nerve dysfunction observed. No truncal ataxia. Moves all extremities. Sensation intact. Psychiatric: Cooperative and interactive. Normal mood and affect. Constitutional Vital Signs, click to edit/add: Last Vital Signs Temp 98.4 F 01/13/25 09:42 Pulse 79 01/13/25 11:51 Resp 18 01/13/25 11:51 BP 108/70 01/13/25 11:51 Pulse Ox 100 01/13/25 11:51 O2 Del Method Room Air 01/13/25 11:51 Course Vital Signs Vital signs: Vital Signs Temperature 98.4 F 01/13/25 09:42 Pulse Rate 80 01/13/25 09:42 Respiratory Rate 16 01/13/25 09:42 Blood Pressure 134/89 01/13/25 09:42 Pulse Oximetry 98 01/13/25 09:42 Oxygen Delivery Method Room Air 01/13/25 09:42 Temperature 98.4 F 01/13/25 09:42 Pulse Rate 79 01/13/25 11:51 Respiratory Rate 18 01/13/25 11:51 Blood Pressure 108/70 01/13/25 11:51 Pulse Oximetry 100 01/13/25 11:51 Oxygen Delivery Method Room Air 01/13/25 11:51 MDM - Head Injury MDM Narrative Medical decision making narrative: The patient EKG showing sinus rhythm with a heart rate of [address] elevation or depression The patient CT head as well as CT cervical spine and x-ray of the left hip showed no acute pathology The patient fall was mostly secondary to alcohol abuse as he mentioned that he is an excessive drinker The patient symptoms could be secondary to concussion as well I did explain to the patient that he need to rest hydrate and monitor symptoms in case of any new symptoms he is to come back to the ER but he need to follow-up with the primary care within a week The patient is to follow up with primary care physician in next 2-3 days or to return to the emergency department should any of the signs or symptoms worsen or new symptoms develop. The patient agrees with the following Diagnosis and Treatment plan and the patient will be discharged home. Lab Data Labs: Lab Results 01/13/25 Range/Units 10:09 WBC 12.7 H (4.0-11.0) 10^3/uL RBC 5.79 (4.70-6.10) 10^6/uL Hgb 18.3 H (14.0-18.0) g/dL Hct 52.9 (42.0-54.0) % MCV 91.4 (80.0-94.0) fL MCH 31.6 (25.9-34.0) pg MCHC 34.6 (29.9-35.2) g/dL RDW 13.4 (11.0-15.0) % Plt Count 314 (150-450) 10^3/uL MPV 9.2 L (9.5-13.5) fL Neut % (Auto) 73.1 (43.0-75.0) % Lymph % (Auto) 19.6 L (20.5-60.0) % Sibley % (Auto) 6.1 (1.7-12.0) % Eos % (Auto) 0.3 L (0.9-7.0) % Baso % (Auto) 0.6 (0.2-2.0) % Neut # (Auto) 9.3 H (1.4-6.5) 10^3/uL Lymph # (Auto) 2.5 (1.2-3.8) 10^3/uL Sibley # (Auto) 0.8 (0.3-0.8) 10^3/uL Eos # (Auto) 0.0 (0.0-0.7) 10^3/uL Baso # (Auto) 0.1 (0.0-0.1) 10^3/uL Abs Immat Gran (auto) 0.04 H (0.00-0.03) 10^3/uL Imm/Tot Granulo (auto) 0.3 (0.0-0.5) % Sodium 139 (136-145) mmol/L Potassium 4.0 (3.5-5.1) mmol/L Chloride 101 (98-107) mmol/L Carbon Dioxide 28.2 (21.0-32.0) mmol/L Anion Gap 13.8 BUN 9.0 (7.0-18.0) mg/dL Creatinine 0.72 (0.70-1.30) mg/dL Est GFR ( Amer) >60 (>=60 mL/min/1.73m^2) Est GFR (Non-Af Amer) >60 (>=60 mL/min/1.73m^2) BUN/Creatinine Ratio 12.5 Glucose 90 (74-106) mg/dL Calcium 9.0 (8.5-10.1) mg/dL Total Bilirubin 0.6 (0.2-1.0) mg/dL AST 20 (15-37) U/L ALT 26 (16-63) U/L Alkaline Phosphatase 76 (46-116) U/L Troponin I High Sens <4.0 L (4.0-76.1) pg/mL Total Protein 8.3 H (6.4-8.2) g/dL Albumin 4.3 (3.4-5.0) g/dL Globulin 4.0 g/dL Albumin/Globulin Ratio 1.1 Ethanol Quant <3 mg/dL Discharge Plan Discharge Chief Complaint: Head Injury Clinical Impression: Head injury, Concussion, Contusion of hip Patient Disposition: Home, Self-Care Time of Disposition Decision: 11:16 Condition: Good Prescriptions / Home Meds: No Action clotrimazole 1 % cream 1 applic topical BID 28 Days Qty: 45 0RF Rx Instructions: please apply to the posterior buttock rash betamethasone dipropionate 0.05 % cream 1 applic topical BID Qty: 15 0RF Rx Instructions: please apply for the left thigh rash for 1 week Print Language: Albanian Instructions: Concussion (ED), Head Injury (DC) Referrals: Physician,Non-Staff, MD [Primary Care Provider] - 1 week Discharge Date/Time: 01/13/25 11:53
[2025-01-13] MEDS: KETOROLAC TROMETHAMINE 30 MG/ML VIAL IVP (11:20)
== END 2025-01-13 11:53 | disposition home or self-care (01) ==
PROVIDERS: Emergency Provider Emergency Medicine
DX: S06.0X0A Concussion without loss of consciousness, initial encounter (principal); S70.02XA Contusion of left hip, initial encounter; W01.0XXA Fall on same level from slipping, tripping and stumbling without subsequent striking against object, initial encounter; F10.10 Alcohol abuse, uncomplicated; F17.200 Nicotine dependence, unspecified, uncomplicated
CPT/HCPCS: 36415; 70450; 72125; 73502; 76376; 80053; 80320; 84484; 85025; 93005; 96374; 99285; J1885